=== PATIENT | female | born 2000 | race Caucasian/White ===

== ENCOUNTER 2020-03-05 14:05 | Emergency (ER) | payer MEDICAID, SELFPAY ==
[2020-03-05 14:19] VITALS: BP 129/72; PULSE 117; RESP 18; TEMP 36.4; O2SAT 98; BMI 30.5
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
== END 2020-03-05 16:00 | disposition home or self-care (01) ==
PROVIDERS: Emergency Provider Emergency Medicine
DX: O26.93 Pregnancy related conditions, unspecified, third trimester (principal); M54.31 Sciatica, right side; M79.10 Myalgia, unspecified site; M79.605 Pain in left leg; M79.604 Pain in right leg; M79.602 Pain in left arm; M79.601 Pain in right arm; Z3A.32 32 weeks gestation of pregnancy
CPT/HCPCS: 99283

== ENCOUNTER 2022-08-22 20:42 | Emergency (ER) | payer MEDICAID, SELFPAY ==
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
[2022-08-22 20:47] VITALS: BP 141/91; PULSE 95; RESP 20; TEMP 36.4; O2SAT 100; BMI 25.5
[2022-08-22] MEDS: Ketorolac Tromethamine 15 MG/ML VIAL 30 MG IM (22:01)
== END 2022-08-22 23:14 | disposition home or self-care (01) ==
PROVIDERS: Emergency Provider Student in an Organized Health Care Education/Training Program
DX: S93.402A Sprain of unspecified ligament of left ankle, initial encounter (principal); V43.52XA Car driver injured in collision with other type car in traffic accident, initial encounter; G89.11 Acute pain due to trauma; M54.50 Low back pain, unspecified; M79.662 Pain in left lower leg; M25.572 Pain in left ankle and joints of left foot; Y93.89 Activity, other specified; Y92.414 Local residential or business street as the place of occurrence of the external cause; Y99.9 Unspecified external cause status
CPT/HCPCS: 72100; 73610; 73630; 96372; 99283; 99284; J1885

== ENCOUNTER 2024-11-24 08:08 | Emergency (ER) | payer MEDICAID, SELFPAY ==
[2024-11-24 08:40] VITALS: BP 130/77; PULSE 66; RESP 18; TEMP 36.3; O2SAT 98; BMI 31.3
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
--- OUTSIDE RECORDS SUMMARY | 2024-11-24 09:04 | XMS_ITS | Clinical Summary ---
Author Organization [employer] Address [address] [place] [address] [address] [place] [address] Care Team Providers Care Round Boner Name Role Phone Unavailable Primary Care Provider Unavailabl e Allergies No known active allergies Medications loratadine (Claritin) 10 MG tabletIndication s:Urticaria Take 1 tablet (10 mg) by mouth Once per day. 30 tablet 02/24/2024 Active Encounters Date Type Department Care Team Description 10/13/2024 Telephone [facility] [address] [place] [phone] Polly Ding MD new patient visit 10/13/2024 Telephone [facility] [address] [place] [phone] Lawrence Barlow MD new patient visit 09/13/2024 Telephone [facility] [address] [place] [phone] Lawrence Barlow MD new pt from Last 3 Months Social History Tobacco Use Types Packs/Day Years Used Date Smoking Tobacco: Never Smokeless Tobacco: Never Tobacco Cessation:Counseling Given: Not Answered Comments Unknown Sex and Gender Information Value Date Recorded Sex Assigned at Female 02/16/2022 10:22 AM EDT Legal Sex Female 10:22 AM EDT Gender Identity Choose not to disclose 10:22 AM EDT Sexual Orientation Choose not to disclose 2021 10:22 AM EDT Last Filed Vital Signs Vital Sign Reading Time Taken Comments Blood Pressure 123/74 02/24/2024 9:57 AM EST Pulse 78 02/24/2024 9:57 AM EST Temperature 36.4 C (97.5 F) 02/24/2024 9:57 AM EST Respiratory Rate 17 02/24/2024 9:57 AM EST Oxygen Saturation 99% 02/24/2024 9:57 AM EST Inhaled Oxygen Concentration - - Weight 85.9 kg (189 lb 6.4 oz) 02/24/2024 9:57 A M EST Height - - Body Mass Index - - Plan of Treatment Upcoming Encounters Date Type Department Care Team (Late st Contact Info) Description 12/29/2024 10:15 AM EDT Office Visit [facility] [address] [place] [address] Polly Ding MD [address], [place] [phone] Health Maintenance Due Date Last Done Comments Depression Screening 1998 HIV Screening 1998 SDOH Screening 1998 Disability Screening 1998 Alcohol/Substance Use Screening 2010 Family Planning (PISQ) 2013 Hepatitis C Screening 2016 Pap Smear 08/20/2019 COVID-19 Vaccine ( season) 2023 Influenza Vaccine (#1) 2024 , 03/18/2016, 01/26/2014, Additional history exists Tobacco Screening 02/23/2025 02/24/2024 DTaP/Tdap/Td Vaccines (9 - Td or Tdap) 03/08/2030 03/08/2020, 07/07/2010, 07/07/2010, Additional history exists Zoster Vaccines (1 of 2) 2048 RSV Patients and Patients Aged 60 years or older (1 - 1-dose 75+ series) 2073 Hepatitis B Vaccines Completed 07/24/1999, 03/20/1999, 1998 HIB Vaccines Completed 02/19/2000, 09/1999, 03/20/1999, Additional history exists IPV Vaccines Completed 09/12/2002, 09/1999, 03/20/1999, Additional history exists HPV Vaccines Completed 10/13/2012, 05/21, 07/07/2010 Meningococcal Vaccine Completed 10/02/2014, 03/21/2 011 Hepatitis A Vaccines Aged Out No long er eligible based on patient's age to complete this topic Meningococcal B Vaccine Aged Out No l onger eligible based on patient's age to complete this topic Pneumococcal Vaccine: Pediatrics (0 to 5 Years) and At-Risk Patients (6 to 49) Years Aged Out No longer eligible based on patient's age to complete this topic RSV under 20 months Aged Out No longe r eligible based on patient's age to complete this topic Rotavirus Vaccines Aged Out No longer eligible based on patient's age to complete this topic Insurance [facility] C3
[2024-11-24] MEDS: Lidocaine HCl 1 % MPF 5 ML VIAL SUBCUT (09:15)
[2024-11-24 09:41] VITALS: BP 130/77; PULSE 66; RESP 18; TEMP 36.3; O2SAT 98
== END 2024-11-24 09:41 | disposition home or self-care (01) ==
PROVIDERS: Emergency Provider Emergency Medicine Emergency Medical Services
DX: S01.81XA Laceration without foreign body of other part of head, initial encounter (principal); Y00.XXXA Assault by blunt object, initial encounter; Y93.9 Activity, unspecified; Y92.9 Unspecified place or not applicable; Y99.9 Unspecified external cause status
CPT/HCPCS: 12011; 99282; 99284; J2003

== ENCOUNTER 2024-12-29 11:00 | Outpatient (REF) | payer MEDICAID, SELFPAY ==
--- OUTSIDE RECORDS SUMMARY | 2024-12-29 10:15 | XMS_ITS | Encounter Summary ---
Author Organization [employer] Address [address] [place] [address] [address] [address] Care Team Providers Care Combination Operator Name Role Phone Polly Ding MD Primary Care Provide r Reason for Referral * Consultation (Routine) - Authorized Specialty Diagnoses / Procedures Referred By Crys ivan Referred To Contact Family Medicine Diagnoses Rash Polly Ding MD [address] [place] [phone] Phone: tel: fax: Referral ID Status Reason Start Date Expiration Date Visits Requested Visits Authorized [id number] Authorized Specialty Services Required 12/29/2024 12/29/2025 1 1 Encounter Details Date Type Department Care Team (Late st Contact Info) Description 12/29/2024 10:15 AM EDT Office Visit [facility] [address] [place] [phone] Polly Ding MD [address] [place] [address] [phone] Class 1 obesity due to excess calories without serious comorbidity with body mass index (BMI) of 31.0 to 31.9 in adult (Primary Dx); Screening examination for STI; Vaginal discharge; Seborrheic dermatitis; Rash; Slow transit constipation Social History Tobacco Use Types Packs/Day Years Used Date Smoking Tobacco: Never Smokeless Tobacco: Never Depression Answer Date Recorded Patient Health Questionnaire-9 Score 2 12/29/2024 Patient Health Questionnaire-9 Score 2 12/29/2024 Last PHQ-9: Questionnaire Data Not on file 0 12/29/2024 Housing Stability Answer Date Recorded What is your housing situation today? I have yadira tinajero 12/29/[address] you li ve. Do you have problems with any of the following? None of the above 12/29/2024 Food Insecurity Answer Date Recorded Within the past 12 months, y ou worried that your food would run out before you got money to buy more: Never True 12/29/2024 Within the past 12 months,th e food you bought just didn't last and you didn't have enough money to get more: Never True 03/2025 Transportation Answer Date Recorded In the past 12 months, has l ack of transportation kept you from medical appts, meetings, work or from getting things needed for daily living? No 12/29/2024 Utilities Answer Date Recorded In the past 12 months, has t he electric, gas, oil or water company threatened to shut off services in your home? No 12/29/2024 Depression Answer Date Recorded Patient Health Questionnaire-2 Score 0 12/29/2024 Internet Access Answer Date Recorded Internet Access Q1 Yes 12/29/2024 Internet Access Q2 Not on file 12/29/2024 Comments Unknown Sex and Gender Information Value Date Recorded Sex Assigned at Female 02/16/2022 10:22 AM EDT Legal Sex Female 10:22 AM EDT Gender Identity Choose not to disclose 10:22 AM EDT Sexual Orientation Choose not to disclose 2021 10:22 AM EDT documented as of this encounter Last Filed Vital Signs Vital Sign Reading Time Taken Comments Blood Pressure 122/82 12/29/2024 10:17 AM EDT Pulse 91 12/29/2024 10:17 AM EDT Temperature 36.5 C (97.7 F) 12/29/2024 10:17 AM EDT Respiratory Rate 15 12/29/2024 10:17 AM EDT Oxygen Saturation 95% 12/29/2024 10:17 AM EDT Inhaled Oxygen Concentration - - Weight 90.5 kg (199 lb 9.6 oz) 12/29/2024 10:17 AM EDT Height 170.2 cm (5' 7 ) 12/29/2024 10:17 AM EDT Body Mass Index 31.26 12/29/2024 10:17 AM EDT documented in this encounter Functional Status * Over the past 2 weeks, how often have you been bothered by any of the following problems? Question Answer Date of Assessment Author Patient Health Questionnaire-2 Score 0 12/18 10:19 AM KURTT Monisha Copeland MA * Little interest or pleasure in doing things Answer Date of Assessment Author Not at all 12/29/2024 10:19 AM KURTT Clarke Copeland MA * Feeling down, depressed, or hopeless Answer Date of Assessment Author Not at all 12/29/2024 10:19 AM EDClarke Savage MA * Trouble falling or staying asleep, or sleeping too much Answer Date of Assessment Author Not at all 12/29/2024 10:19 AM Clarke Dash MA * Feeling tired or having little energy Answer Date of Assessment Author Several days 12/29/2024 10:19 AM Clarke Dash MA * Poor appetite or overeating Answer Date of Assessment Author Several days 12/29/2024 10:19 AM Clarke Dash MA * Feeling bad about yourself - or that you are a failure or have let yourself or your family down Answer Date of Assessment Author Not at all 12/29/2024 10:19 AM Clarke Dash MA * Trouble concentrating on things, such as reading the newspaper or watching television Answer Date of Assessment Author Not at all 12/29/2024 10:19 AM Clarke Dash MA * Moving or speaking so slowly that other people could have noticed? Or the opposite - being so fidgety or restless that you have been moving around a lot more than usual. Answer Date of Assessment Author Not at all 12/29/2024 10:19 AM Clarke Dash MA * Thoughts that you would be better off or hurting yourself in some way Answer Date of Assessment Author Not at all 12/29/2024 10:19 AM Clarke Dash MA * Patient Health Questionnaire-9 Score Answer Date of Assessment Author 2 12/29/2024 10:19 AM Clarke Dash MA * How difficult have these problems made it for you to do your work, take care of things at home, or get along with other people? Answer Date of Assessment Author Not difficult at all 12/29/2024 10:19 AM Monisha Ferrera MA * Over the last 2 weeks, how often have you been bothered by any of the following problems? Question Answer Date of Assessment Author Feeling nervous, anxious, or on edge 1 12/18 10:19 AM Monisha Dash MA Not being able to stop or co ntrol worrying 1 12/29/2024 10:19 AM Monisha Dash MA Worrying too much about diff erent things 1 12/29/2024 10:19 AM Monisha Dash MA Trouble relaxing 1 12/29/2024 10:19 AM Monisha Dash MA Being so restless that it is hard to sit still 0 12/29/2024 10:19 AM Monisha Dash MA Feeling afraid as if somethi ng awful might happen 1 12/29/2024 10:19 AM Monisha Dash MA documented as of this encounter Progress Notes * Polly Childress MD - 12/29/2024 10:15 AM EDT SUBJECTIVE: Naheed Akbar is a 24 y.o. year old adult who presents for new patient . 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 Lives with:Grandmother - EtOH 3 drinks once or twice a month - smoking cigarettes denies - recreational drug use smokes marijuana every day Diet:regular Exercise:sedentary LMP: Nexplanon, irregular Surgeries/Hospitalizations: none PAP smear: done 2 years ago in [place] was normal PMHx:none FMHx: maternal cousin 25 y/o from brreast cancer she got genetic testing and it was negative, father depression, bipolar, schizophrenia and HTN Immunizations: Reviewed Acute Concerns: Patient reports she sometimes has a rash on her palms and feet whenever she feels stressed, she does not have it today and does not have any pictures Patient reports she has been having a lot of dandruff Patient today also complains of vaginal discharge, reports some odor no itchiness or pain Patient also complains of intermittent constipation Social History Social History Narrative Not on file Problem List[1] Class 1 obesity due to excess calories without serious comorbidity with body mass index (BMI) of 31.0 to 31.9 in adult Screening examination for STI Vaginal discharge Seborrheic dermatitis Rash Slow transit constipation Family History[2] Review of Systems Constitutional: Negative. HENT: Negative. Respiratory: Negative. Cardiovascular: Negative. Gastrointestinal: Positive for constipation. Negative for abdominal distention, abdominal pain, anal bleeding, blood in stool, diarrhea, nausea, rectal pain and vomiting. Genitourinary: Positive for vaginal discharge. Negative for decreased urine volume, difficulty urinating, dyspareunia, dysuria, enuresis, flank pain, frequency, genital sores, hematuria, menstrual problem, pelvic pain, penile discharge, penile pain, penile swelling, scrotal swelling, testicular pain, urgency, vaginal bleeding and vaginal pain. OBJECTIVE: Vitals: 12/29/24 1017 BP: 122/82 BP Location: Left arm Patient Position: Sitting BP Cuff Size: Adult Pulse: 91 Resp: 15 Temp: 97.7 ??F (36.5 ??C) TempSrc: Temporal SpO2: 95% Weight: 199 lb 9.6 oz (90.5 kg) Height: 5' 7 (1.702 m) Physical Exam Constitutional: Appearance: Normal appearance. Cardiovascular: Rate and Rhythm: Normal rate and regular rhythm. Pulmonary: Effort: Pulmonary effort is normal. Breath sounds: Normal breath sounds. Abdominal: General: Abdomen is flat. Palpations: Abdomen is soft. Musculoskeletal: Right lower leg: No edema. Left lower leg: No edema. Neurological: Mental Status: Naheed is alert. Follow Up: Follow up for 4 weeks televisit review of labs . Medications Ordered Prior to Encounter[3] Problem List Items Addressed This Visit Class 1 obesity due to excess calories without serious comorbidity with body mass index (BMI) of 31.0 to 31.9 in adult - Primary Extensive counseling about healthy diet and exercise done today I will order blood work and contact patient with results Relevant Orders CBC auto differential Comprehensive Metabolic Panel Hemoglobin A1c Lipid Panel, Standard Vitamin D, 25-Hydroxy, Total, Immunoassay TSH with Reflex to Free T4 Screening examination for STI Relevant Orders HIV-1/2 Antigen and Antibodies, Fourth Generation, with Reflexes Hepatitis C Antibody with Reflex to HCV, RNA, Quantitative, Real-Time PCR RPR (Monitor) with Reflex to Titer Vaginal discharge Bacterial vaginosis panel and chlamydia gonorrhea could not be done today patient will be contactedwith results Relevant Orders Bacterial Vaginosis Panel Chlamydia/N. Gonorrhoeae RNA, TMA, Vaginal Seborrheic dermatitis Relevant Medications ketoconazole (NIZOral) 2 % shampoo (Start on 01/01/2025) Rash I advised patient to take a picture when the rash happens I put a referral in for Derm Relevant Medications ketoconazole (NIZOral) 2 % shampoo (Start on 01/01/2025) Other Relevant Orders Referral to [facility] Derm Skin Adult Slow transit constipation It was advised to increase water and fiber in her diet and also increase walks I prescribed MiraLAX to be taken as needed Relevant Medications polyethylene glycol, PEG, 3350 (MiraLax) 17 GM/SCOOP powder [1] Patient Active Problem List Diagnosis Class 1 obesity due to excess calories without serious comorbidity with body mass index (BMI) of 31.0 to 31.9 in adult Screening examination for STI Vaginal discharge Seborrheic dermatitis Rash Slow transit constipation [2] No family history on file. [3] Current Outpatient Medications on File Prior to Visit Medication Sig Dispense Refill loratadine (Claritin) 10 MG tablet Take 1 tablet (10 mg) by mouth Once per day. 30 tablet 0 No current facility-administered medications on file prior to visit. documented in this encounter Miscellaneous Notes * Assessment & Plan Note - Polly Childress MD - 12/29/2024 11:48 AM EDT Associated Problem(s): Rash I advised patient to take a picture when the rash happens I put a referral in for Derm * Assessment & Plan Note - Polly Childress MD - 12/29/2024 11:47 AM EDT Associated Problem(s): Vaginal discharge Bacterial vaginosis panel and chlamydia gonorrhea could not be done today patient will be contactedwith results * Assessment & Plan Note - Polly Childress MD - 12/29/2024 11:47 AM EDT Associated Problem(s): Slow transit constipation It was advised to increase water and fiber in her diet and also increase walks I prescribed MiraLAX to be taken as needed * Assessment & Plan Note - Polly Childress MD - 12/29/2024 11:47 AM EDT Associated Problem(s): Class 1 obesity due to excess calories without serious comorbidity with bodymass index (BMI) of 31.0 to 31.9 in adult Extensive counseling about healthy diet and exercise done today I will order blood work and contact patient with results documented in this encounter Plan of Treatment Upcoming Encounters Date Type Department Care Team (Late st Contact Info) Description 01/29/2025 10:00 AM EDT Telemedicine [facility] [address] [place] [address] [phone] Polly Ding MD [address] [place] [address] Scheduled Orders Name Type Priority Associated Diagnoses Orde r Schedule CBC auto differential Lab Routine Class 1 obesity due to excess calories without serious comorbidity with body mass index (BMI) of 31.0 to 31.9 in adult Expected: 12/29/2024 (Approximate), Expires: 12/29/2025 Comprehensive Metabolic Panel Lab Routine Class 1 obesity due to excess calories without serious comorbidity with body mass index (BMI) of 31.0 to 31.9 in adult Expected: 12/29/2024 (Approximate), Expires: 12/29/2025 Hemoglobin A1c Lab Routine Class 1 obesity due to excess calories without serious comorbidity with body mass index (BMI) of 31.0 to 31.9 in adult Expected: 12/29/2024 (Approximate), Expires: 12/29/2025 HIV-1/2 Antigen and Antibodies, Fourth Generation, with Reflexes Lab Routine Screening examination for STI Expected: 12/29/2024 (Approximate), Expires: 12/29/2025 Hepatitis C Antibody with Reflex to HCV, RNA, Quantitative, Real-Time PCR Lab Routine Screening examination for STI Expected: 12/29/2024, Expires: 12/29/2025 Lipid Panel, Standard Lab Routine Class 1 obesity due to excess calories without serious comorbidity with body mass index (BMI) of 31.0 to 31.9 in adult Expected: 12/29/2024 (Approximate), Expires: 12/29/2025 Vitamin D, 25-Hydroxy, Total, Immunoassay Lab Routine Class 1 obesity due to excess calories without serious comorbidity with body mass index (BMI) of 31.0 to 31.9 in adult Expected: 12/29/2024 (Approximate), Expires: 12/29/2025 TSH with Reflex to Free T4 Lab Routine Class 1 obesity due to excess calories without serious comorbidity with body mass index (BMI) of 31.0 to 31.9 in adult Expected: 12/29/2024 (Approximate), Expires: 12/29/2025 RPR (Monitor) with Reflex to Titer Lab Routine Screening examination for STI Expected: 12/29/2024, Expires: 12/29/2025 Bacterial Vaginosis Panel Microbiology Routine Vaginal discharge Ordered: 12/29/2024 Chlamydia/N. Gonorrhoeae RNA, TMA, Vaginal Microbiology Routine Vaginal discharge Ordered: 12/29/2024 Scheduled Referrals Name Type Priority Associated Diagnoses Orde r Schedule Referral to [facility] Derm Skin Adult Outpatient Referral Routine Rash Expected: 12/29/2024 (Approximate), Expires: 12/29/2025 documented as of this encounter Visit Diagnoses Diagnosis Class 1 obesity due to excess calories without serious comorbidity with body mass index (BMI) of 31.0 to 31.9 in adult- Primary Screening examination for STI Vaginal discharge Leukorrhea, not specified as infective Seborrheic dermatitis Unspecified seborrheic dermatitis Rash Rash and other nonspecific skin eruption Slow transit constipation documented in this encounter Additional Health Concerns Assessment Noted Time PHQ-9 Depression Total Score: 2 12/30/19 25 10:19 AM EDT documented as of this encounter Care Teams Combination Operator Relationship Specialty Start Date End Date Polly Ding MD [address] [place] [address] PCP - General Internal Medicine 12/29/24 documented as of this encounter
--- OUTSIDE RECORDS SUMMARY | 2024-12-29 12:45 | XMS_ITS | Clinical Summary ---
Author Organization [employer] Address [address] [facility] 7[address] [place] [address] Care Team Providers Care Senior Cyber Security Analyst Name Role Phone Polly Ding MD Primary Care Provide r Allergies No known active allergies Medications loratadine (Claritin) 10 MG tabletIndications :Urticaria Take 1 tablet (10 mg) by mouth Once per day. 30 tablet 4 Active ketoconazole (NIZOral) 2 % shampooIndication s:Seborrheic dermatitis Apply topically 2 (two) times a week. 120 mL 1 5 Active polyethylene glycol, PEG, 3350 (MiraLax) 17 GM/SCOOP powderIndications :Slow transit constipation Take 17 g by mouth Once per day. 527 g 2 5 04/01/20 25 Active Active Problems Problem Noted Date Diagnosed Date Class 1 obesity due to exces s calories without serious comorbidity with body mass index (BMI) of 31.0 to 31.9 in adult 12/29/2024 Assessment & Plan (12/29/2024 11:47 AM EDT): Extensive counseling about healthy diet and exercise done today I will order blood work and contact patient with results Screening examination for STI 12/29/2024 Vaginal discharge 12/29/2024 Assessment & Plan (12/29/2024 11:47 AM EDT): Bacterial vaginosis panel and chlamydia gonorrhea could not be done today patient will be contacted with results Seborrheic dermatitis 12/29/2024 Rash 12/29/2024 Assessment & Plan (12/29/2024 11:48 AM EDT): I advised patient to take a picture when the rash happens I put a referral in for Derm Slow transit constipation 12/29/2024 Assessment & Plan (12/29/2024 11:47 AM EDT): It was advised to increase water and fiber in her diet and also increase walks I prescribed MiraLAX to be taken as needed Encounters Date Type Department Care Team Description 12/29/2024 10:15 AM EDT Office Visit [address] [phone] Polly Ding MD Class 1 obesity due to excess calories without serious comorbidity with body mass index (BMI) of 31.0 to 31.9 in adult (Primary Dx); Screening examination for STI; Vaginal discharge; Seborrheic dermatitis; Rash; Slow transit constipation 12/29/2024 Travel 12/28/[address] [phone] Polly Ding MD chart prep 12/20/2024 Patient Outreach [address] [phone] Polly Ding MD Pre-visit Planning ((Unable to reach for PVP screening, LVM) to be completed in office ) 10/13/[address] [address] Polly Ding MD new patient visit 10/13/[address] [phone] Lawrence Barlow MD new patient visit from Last 3 Months Immunizations Immunization Administration Dates Next Due DTaP 09/12/2002, 1,07/24/1999,03/20,1998 HPV, Quadrivalent 10/13/2012,06/08/2012,07/08/19 11 Hep B, Adolescent or Pediatric 07/24/1999,1998,1998 Hib (HbOC) 02/19/2000, 0,03/20/1999,10/29 IPV 09/12/2002, 0,03/20/1999,10/29 Influenza injectable quadriv alent preservative free 01/31/2020,03/18/2016 Influenza live intranasal qu adrivalent LIAV4 01/26/2014 Influenza, Split (incl. aura fied surface antigen) 01/13/2013,06/08/2012 MMR 05/02/2020,09/12/2002,09/04/1999 Meningococcal MCV4P ACYW-135 10/02/2014 Meningococcal MPSV4 07/07/2010 TD (adult), 2 Lf tetanus tox oid, preservative free, adsorbed 07/07/2010 Tdap 03/08/2020,07/07/2010 Varicella 07/07/2010,02/19/2000 Social History Tobacco Use Types Packs/Day Years Used Date Smoking Tobacco: Never Smokeless Tobacco: Never Tobacco Cessation:Counseling Given: Not Answered Depression Answer Date Recorded Patient Health Questionnaire-9 [...] Mass Index 31.26 12/29/2024 10:17 AM EDT Plan of Treatment Upcoming Encounters Date Type Department Care Team (Late st Contact Info) Description 01/29/2025 10:00 AM EDT Telemedicine [facility] [address] [place] [address] Polly Ding MD [address] [place] [address] Health Maintenance Due Date Last Done Comments HIV Screening 1998 Lipid Panel 1998 Alcohol/Substance Use Screening 2010 Family Planning (PISQ) 2013 Hepatitis C Screening 2016 Pap Smear 08/20/2019 COVID-19 Vaccine ( season) 2024 Influenza Vaccine (#1) 2024 , 03/18/2016, 01/26/2014, Additional history exists Depression Screening 12/29/2025 12/29/2024, 12/30/19 25 Disability Screening 12/29/2025 12/29/2024 SDOH Screening 12/29/2025 12/29/2024 Tobacco Screening 12/29/2025 12/29/2024 DTaP/Tdap/Td Vaccines (9 - Td or Tdap) [...] 10/13/2012, 05/21, 07/07/2010 Meningococcal Vaccine Completed 10/02/2014, 011 Hepatitis A Vaccines Aged Out No [...] patient's age to complete this topic Insurance [facility] C3 Care Teams Senior Cyber Security Analyst Relationship Specialty Start Date End Date Polly Ding MD [address] [place] [address] PCP - General Internal Medicine 12/29/24
--- OUTSIDE RECORDS SUMMARY | 2024-12-29 12:45 | XMS_ITS | Encounter Summary ---
Author Organization [employer] Address [address] [facility] [address] [place] [address] Care Team Providers Care Steel Finisher Name Role Phone Polly Ding MD Primary Care Provide r Encounter Details Date Type Department Care Team (Latest Contact Info) Description 12/29/2024 Travel Social History Tobacco Use Types Packs/Day Years Used Date Smoking Tobacco: Never Smokeless Tobacco: Never Depression Answer Date Recorded Patient Health Questionnaire-9 Score 2 12/29/2024 Patient Health Questionnaire-9 Score 2 12/29/2024 Last PHQ-9: Questionnaire Data Not on file 0 12/29/2024 Housing Stability Answer Date Recorded What is your housing situation today? I have yadirakhushboo tinajero 12/29/[address] you [...] AM EDT documented as of this encounter Functional Status * Over the past 2 weeks, how often have you been bothered by any of the following problems? Question Answer Date of Assessment Author Patient Health Questionnaire-2 Score 0 12/18 10:19 AM EDT Monisha Copeland MA * Little interest or pleasure in doing things Answer Date of Assessment Author Not at all 12/29/2024 10:19 AM Clarke Dash MA * Feeling down, depressed, or hopeless Answer Date of Assessment Author Not at all 12/29/2024 10:19 AM Clarke Dash MA * Trouble falling or staying asleep, [...] 10:19 AM KURTT Clarke Copeland MA * Patient Health Questionnaire-9 Score Answer Date of Assessment Author 2 12/29/2024 10:19 AM KURTT Clarke Copeland MA * How difficult have these problems made it for you to do your work, take care of things at home, or get along with other people? Answer Date of Assessment Author Not difficult at all 12/29/2024 10:19 AM EDT Monisha Cagle MA * Over the last 2 weeks, how often have you been bothered by any of the following problems? Question Answer Date of Assessment Author Feeling nervous, anxious, or on edge 1 12/18 10:19 AM KURTT Monisha Copeland MA Not being able to stop or [...] Dash MA documented as of this encounter Plan of Treatment Upcoming Encounters Date Type Department Care Team (Late st Contact Info) Description 01/29/2025 10:00 AM EDT Telemedicine [facility] [address] [place] [address] Polly Ding MD [address] [place] [address] documented as of this encounter Visit Diagnoses Not on filedocumented in this encounter Additional Health Concerns Assessment Noted Time PHQ-9 Depression Total Score: 2 12/30/19 25 10:19 AM EDT documented as of this encounter Care Teams Steel Finisher Relationship Specialty Start Date End Date Polly Ding MD [address] [place] [address] PCP - General Internal Medicine 12/29/24 documented as of this encounter
--- OUTSIDE RECORDS SUMMARY | 2024-12-29 12:46 | XMS_ITS | Encounter Summary ---
Author Organization [employer] Address [address] [facility] 7[address] [place] [address] Care Team Providers Care Operator Helper Name Role Phone Unavailable Primary Care Provider Unavailabl e Reason for Visit * Reason Onset Date Comments chart prep 12/28/2024 Encounter Details Date Type Department Care Team ([facility] st Contact Info) Description 12/28/2024 Telephone [facility] [address] [place] [address] Polly Ding MD [address] [place] [address] chart prep Social History Tobacco Use Types Packs/Day Years [...] t he electric, gas, oil or water [employer] threatened to shut off services in your [...] AM EDT documented as of this encounter Miscellaneous Notes * Telephone Encounter - Tiff Mckeon MA - 12/28/2024 11:25 AM EDT Chart Prep Labs: not applicable Images: not applicable Referrals: not applicable Vaccines due: Covid and Flu Screenings: pap smear, LMP Overdue care gaps: SBIRT, SDOH, PHQ-9, DON-7, Disability screen, and Tobacco documented in this encounter Plan of Treatment Upcoming Encounters Date Type Department Care Team (Late st Contact Info) Description 01/29/2025 10:00 AM EDT Telemedicine [facility] [address] [place] [address] Polly Ding MD [address] [place] [address] documented as of this encounter Visit Diagnoses Not on filedocumented in this encounter
[2024-12-29 13:44] LABS: MANUAL DIFF FLAG NO
[2024-12-29 13:47] LABS: Hematocrit 41.7 % (37.0-47.0); Hemoglobin 14.9 g/dl (12.0-16.0); Imm Gran Abs Auto 0.06 X10*3/uL (0.00-0.03); Imm Gran Pct Auto 0.7 % (0.0-0.4); Lymphocytes Absolute Auto 2.6 X10*3/uL (1.2-4.9); Mean Corpuscular HGB Conc 35.7 g/dl (31.0-35.0); Mean Corpuscular Hemoglobin 32.6 pg (27.0-33.0); Mean Corpuscular Volume 91.2 fL (80.0-98.0); NRBC Abs Auto 0.000 X10*3/uL (0.0-0.012); NRBC Pct Auto 0.0 /100WBC (0.0-0.2); Platelet Count 331 X10*3/uL (160-400); Red Blood Count 4.57 X10*6/uL (4.20-5.50); White Blood Count 8.9 X10*3/uL (4.8-10.8)
[2024-12-29 14:09] LABS: Alanine Aminotransferase 32 U/L (0-31); Albumin Level 4.7 g/dL (3.5-5.0); Alkaline Phosphatase 83 U/L (39-117); Anion Gap 14 (12-20); Aspartate Amino Transferase 31 U/L (5-31); Blood Urea Nitrogen 11 mg/dL (9-16); Calcium 9.5 mg/dL (8.4-10.2); Carbon Dioxide 24 mmol/L (22-29); Chloride 105 mmol/L (96-108); Cholesterol 181 mg/dL (<200); Estimated Glomerular Filt Rate > 60; HDL Cholesterol 48 mg/dL (>40); Potassium 4.0 mmol/L (3.3-5.1); Sodium 139 mmol/L (135-145); Total Protein 7.9 g/dL (6.5-8.0); Triglycerides 112 mg/dL (<150)
[2024-12-29 14:18] LABS: Hemoglobin A1C 128.3288 umol/L; Total Hemoglobin (HGBA1C) 3793.6340 umol/L
[2024-12-29 15:59] LABS: Bacterial Vaginosis PCR POSITIVE (Negative); Candida Group PCR NOT DETECTED (Not Detect); Candida glab krusei PCR NOT DETECTED (Not Detect); Trichomonas vaginalis PCR NOT DETECTED (Not Detect)
[2024-12-29 16:32] LABS: CT PCR NOT DETECTED (Not Detect.); NG PCR NOT DETECTED (Not Detect.)
[2024-12-30 08:39] LABS: HIV Num 1 0.03 S/CO (0.00-0.99); ~HepC Num1 0.10 S/CO (0.00-0.79); ~Hepatitis C Antibody Nonreactive (Nonreactive)
== END 2024-12-29 11:01 | disposition home or self-care (01) ==
LOC: HO.HHCL 11:00
PROVIDERS: PCP Internal Medicine; Visit Provider Internal Medicine
DX: N89.8 Other specified noninflammatory disorders of vagina (principal); E66.811 Obesity, class 1; Z11.59 Encounter for screening for other viral diseases; Z11.3 Encounter for screening for infections with a predominantly sexual mode of transmission; Z68.31 Body mass index [BMI] 31.0-31.9, adult; Z11.4 Encounter for screening for human immunodeficiency virus [HIV]; Z11.8 Encounter for screening for other infectious and parasitic diseases
CPT/HCPCS: 36415; 80053; 80061; 81515; 82306; 83036; 84443; 85025; 86592; 86803; 87389; 87491; 87591